=== PATIENT | female | born 1995 | race African-American/Black ===

== ENCOUNTER 2017-01-06 17:51 | Emergency (ER) | payer OTHER ==
[2017-01-06 17:55] VITALS: BP 119/75; PULSE 75; TEMP 98; BMI 19.7
--- NOTE | 2017-01-06 17:57 | PDOC ---
Rapid Medical Evaluation Chief Complaint: Psychiatric Time Seen by Provider: 01/06/17 17:53 Medical Evaluation: 01/06/17 17:54 RME Note: I have performed a brief, in-person evaluation of this patient . This patient presents with CC: Left sided CP; very anxious, meds at home not working Pertinent PE findings are: VSS; lungs clear I have ordered: EKG The patient will proceed to ED for further evaluation. JR
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
[2017-01-06] MEDS ORDERED: IBUPROFEN 400 MG TABLET (FP) PO ONE ×2 (19:42→19:49)
--- NOTE | 2017-01-07 09:41 | EKG ---
Test Reason : Blood Pressure : / mmHG Vent. Rate : 061 BPM Atrial Rate : 061 BPM P-R Int : 180 ms QRS Dur : 084 ms QT Int : 384 ms P-R-T Axes : 067 076 060 degrees QTc Int : 386 ms NORMAL SINUS RHYTHM ANTERIOR INFARCT , AGE UNDETERMINED NONSPECIFIC T WAVE ABNORMALITY NO PREVIOUS ECGS AVAILABLE Confirmed by DAVEY FRITZ MD ([id number]) on 01/07/2017 9:40:47 AM Referred By: Confirmed By:DAVEY FRITZ MD
== END 2017-01-06 20:37 | disposition home or self-care (01) ==
LOC: JERFT 17:51
DX: M94.0 Chondrocostal junction syndrome [Tietze] (principal); F41.8 Other specified anxiety disorders; F32.9 Major depressive disorder, single episode, unspecified; F43.10 Post-traumatic stress disorder, unspecified
CPT/HCPCS: 71020-TC; 84703; 93005; 93010; 99281-25

== ENCOUNTER 2021-05-23 23:55 | Emergency (ER) | payer OTHER ==
[2021-05-24 00:04] VITALS: BMI 22.6
[2021-05-24] MEDS ORDERED: ACETAMINOPHEN 325 MG TABLET (FP) PO ONE (00:50)
[2021-05-24] MEDS ORDERED: LIDOCAINE 5% TOPICAL PATCH TP ONE (00:50)
[2021-05-24] MEDS ORDERED: ACETAMINOPHEN 325 MG TABLET (FP) ONE (00:59)
[2021-05-24] MEDS ORDERED: LIDOCAINE 5% TOPICAL PATCH ONE (01:00)
[2021-05-24 02:23] VITALS: BP 127/52; PULSE 66; TEMP 98.9
[2021-05-24 02:23] LABS: EPI CELLS 28 /uL (0-25.1); HYALINE CASTS 2 /uL (0-3.1); PH,URINE 6.5 (5.0-8.0); URINE APPEARANCE CLEAR; URINE BACTERIA 171 /uL (0-1359); URINE BILIRUBIN NEGATIVE (NEGATIVE); URINE COLOR YELLOW; URINE GLUCOSE (UA) NEGATIVE (NEGATIVE); URINE KETONE NEGATIVE (NEGATIVE); URINE LEUK ESTERASE 1+ (NEGATIVE); URINE NITRITE NEGATIVE (NEGATIVE); URINE PROTEIN NEGATIVE (NEGATIVE); URINE RBC 23 /uL (0-23.9); URINE WBC 49 /uL (0-25.8)
[2021-05-24] MEDS ORDERED: LIDOCAINE PATCH REMOVAL MC ONE (12:00)
== END 2021-05-24 02:23 | disposition home or self-care (01) ==
LOC: JER 23:55
DX: M54.5 Low back pain (principal)
CPT/HCPCS: 81003; 99283-25

== ENCOUNTER 2024-01-01 17:35 | Emergency (ER) | payer BC, OTHER ==
[2024-01-01 17:45] VITALS: BP 123/82; TEMP 98.8; BMI 26.3
[2024-01-01 18:39] LABS: HEMATOCRIT 39.1 % (32.4-45.2); HEMOGLOBIN 13.1 GM/dL (10.7-15.3); MCH 32.1 pg (25.7-33.7); MCHC 33.5 g/dl (32.0-36.0); MEAN CELL VOLUME 95.9 fl (80-96); MEAN PLT VOLUME 8.1 fl (7.5-11.1); PLATELET COUNT 268 10^3/uL (134-434); RBC 4.08 M/mm3 (3.60-5.2); WHITE BLOOD COUNT 8.6 K/mm3 (4.0-10.0)
[2024-01-01] MEDS: SODIUM CHLORIDE 0.9% 500 ML INFUS.BAG IV ONE (18:54)
[2024-01-01 18:55] LABS: POTASSIUM 4.2 mmol/L (3.5-5.1)
[2024-01-01 18:57] LABS: ALBUMIN 3.7 g/dl (3.4-5.0); MAGNESIUM 1.9 mg/dL (1.8-2.4)
[2024-01-01 19:00] LABS: CREATININE 0.5 mg/dL (0.55-1.3); PHOSPHOROUS 3.5 mg/dL (2.5-4.9)
[2024-01-01 19:02] LABS: BILIRUBIN,TOTAL 0.5 mg/dL (0.2-1); TOT PROT 7.9 g/dl (6.4-8.2)
[2024-01-01] MEDS ORDERED: METOCLOPRAMIDE HCL INJECTION 10 MG/2 ML VIAL ONE (20:03)
[2024-01-01] MEDS: METOCLOPRAMIDE HCL INJECTION 10 MG/2 ML VIAL IVPUSH ONE (20:15)
[2024-01-01 21:01] VITALS: PULSE 89; RESP 19
== END 2024-01-01 21:42 | disposition home or self-care (01) ==
LOC: JER 17:35
PROC: 3E033GC Introduction of Other Therapeutic Substance into Peripheral Vein, Percutaneous Approach (ICD-10-PCS; principal; 2024-01-01)
DX: O21.9 Vomiting of pregnancy, unspecified (principal); Z3A.16 16 weeks gestation of pregnancy; Z20.822 Contact with and (suspected) exposure to COVID-19
CPT/HCPCS: 0241U-QW; 36415; 80053; 83735; 84100; 85027; 93005; 93010; 99284-25

== ENCOUNTER 2024-06-04 19:55 | Inpatient (IN) | payer BC ==
[2024-06-04 20:46] LABS: BASO % 0.4 % (0-2.0); EOS % 0.6 % (0-4.5); HEMATOCRIT 31.8 % (32.4-45.2); HEMOGLOBIN 10.8 GM/dL (10.7-15.3); LYMPH % 25.4 % (8-40); MCH 31.1 pg (25.7-33.7); MCHC 33.9 g/dl (32.0-36.0); MEAN CELL VOLUME 91.7 fl (80-96); MEAN PLT VOLUME 8.6 fl (7.5-11.1); MONO % 9.1 % (3.8-10.2); NEUT % 64.5 % (42.8-82.8); PLATELET COUNT 196 10^3/uL (134-434); RBC 3.47 M/mm3 (3.60-5.2); RDW 15.4 % (11.6-15.6); WHITE BLOOD COUNT 5.2 K/mm3 (4.0-10.0)
[2024-06-04 20:55] LABS: INR 0.89 (0.83-1.09); PROTHROMBIN TIME (PATIENT) 10.1 SEC (9.7-13.0)
[2024-06-04 20:58] LABS: ACTIVATED PTT 29.2 SECONDS (25.2-36.5)
[2024-06-04 21:06] LABS: POTASSIUM 3.4 mmol/L (3.5-5.1)
[2024-06-04 21:07] LABS: BLOOD UREA NITROGEN 4.7 mg/dL (7-18); CALCIUM 9.4 mg/dL (8.5-10.1)
[2024-06-04 21:11] LABS: CREATININE 0.5 mg/dL (0.55-1.3)
[2024-06-04] MEDS: DINOPROSTONE 10 MG VAGINAL SUPPOSITORY VG ONE (21:50)
[2024-06-04 22:02] LABS: HIV INTERPRETATION NEGATIVE (NEGATIVE)
[2024-06-04 22:22] VITALS: BMI 29.8
[2024-06-04] MEDS: ELECTROLYTE-148 SOLN 1,000 ML IV SCH (23:00)
[2024-06-04] MEDS: POTASSIUM CHLORIDE ORAL LIQUID 20 MEQ/15 ML PO ONE (23:45)
[2024-06-05] MEDS ORDERED: BUTORPHANOL TARTRATE 2 MG/ML VIAL ONE (09:42)
[2024-06-05] MEDS ORDERED: PROMETHAZINE HCL 25 MG/1 ML VIAL ONE ×2 (09:43→18:22)
[2024-06-05] MEDS ORDERED: OXYTOCIN 30 UNITS in 0.9% NS 30 UNIT/500 ML INFUS.BAG IVPB ONE (10:13)
[2024-06-05] MEDS: BUTORPHANOL TARTRATE 1 MG/ML VIAL IVPUSH ONE ×2 (10:20→18:23)
[2024-06-05] MEDS: OXYTOCIN 30 UNITS in 0.9% NS 30 UNIT/500 ML INFUS.BAG IVPB SCH (10:20)
[2024-06-05] MEDS: PROMETHAZINE HCL 25 MG/1 ML VIAL IVPB ONE ×2 (10:20→18:23)
[2024-06-05] MEDS ORDERED: BUTORPHANOL TARTRATE 1 MG/ML VIAL ONE (18:21)
[2024-06-05] MEDS ORDERED: FENTANYL/BUPIVACAINE/NS/PF - PCEA - 50 ML DISP.SYRIN EP ONE (20:14)
[2024-06-05] MEDS ORDERED: BUPIVACAINE HCL/PF 0.25% (2.5MG/ML) 10 ML VIAL ONE (20:30)
[2024-06-05] MEDS ORDERED: FENTANYL CITRATE/PF 50 MCG/ML VIAL ONE (20:30)
[2024-06-05] MEDS: FENTANYL/BUPIVACAINE/NS/PF - PCEA - 50 ML DISP.SYRIN EP SCH (20:48)
[2024-06-05] MEDS ORDERED: NALOXONE HCL 0.4 MG/ML VIAL IVPUSH PRN (21:17)
[2024-06-06] MEDS ORDERED: FENTANYL/BUPIVACAINE/NS/PF - PCEA - 50 ML DISP.SYRIN EP ONE ×2 (01:07→05:29)
[2024-06-06] MEDS ORDERED: OXYTOCIN 20 UNITS in 0.9% NS 20 UNIT/1,000 ML INFUS.BAG IV ONE (06:32)
[2024-06-06] MEDS ORDERED: LIDOCAINE HCL 1% PRESERVATIVE FREE - 30ML VIAL ONE (06:32)
[2024-06-06] MEDS: OXYTOCIN 20 UNITS in 0.9% NS 20 UNIT/1,000 ML INFUS.BAG IV SCH (07:09)
[2024-06-06] MEDS ORDERED: BISACODYL 10 MG SUPP.RECT RC PRN (07:42)
[2024-06-06] MEDS ORDERED: WITCH HAZEL 50% (TUCKS) 40 PAD/JAR PAD TP PRN (07:42)
[2024-06-06] MEDS ORDERED: METHYLERGONOVINE MALEATE 0.2 MG/1 ML AMP IM PRN (07:42)
[2024-06-06] MEDS ORDERED: ACETAMINOPHEN 325 MG TABLET (FP) PO PRN (07:42)
[2024-06-06] MEDS: BENZOCAINE 20% 57 GM BOTTLE TP PRN (12:48)
[2024-06-06] MEDS: BENZOCAINE 28 GM HEMORRHOIDAL OINTMENT TP PRN (12:49)
[2024-06-06] MEDS: IBUPROFEN 600 MG TABLET (FP) PO PRN (15:27)
[2024-06-06 17:21] VITALS: RESP 18
[2024-06-07 06:39] LABS: BASO % 0.3 % (0-2.0); EOS % 1.4 % (0-4.5); HEMATOCRIT 28.6 % (32.4-45.2); HEMOGLOBIN 9.7 GM/dL (10.7-15.3); LYMPH % 21.2 % (8-40); MCH 31.7 pg (25.7-33.7); MCHC 33.8 g/dl (32.0-36.0); MEAN CELL VOLUME 93.9 fl (80-96); MEAN PLT VOLUME 9.2 fl (7.5-11.1); MONO % 8.6 % (3.8-10.2); NEUT % 68.5 % (42.8-82.8); PLATELET COUNT 170 10^3/uL (134-434); RBC 3.04 M/mm3 (3.60-5.2); RDW 15.8 % (11.6-15.6); WHITE BLOOD COUNT 8.2 K/mm3 (4.0-10.0)
[2024-06-07] MEDS: SENNOSIDES/DOCUSATE COMBO (SENNA PLUS) TABLET (UD) PO PRN (21:02)
[2024-06-07 22:33] VITALS: TEMP 98
[2024-06-08 11:05] VITALS: BP 130/80; PULSE 80
== END 2024-06-08 12:20 | disposition home or self-care (01) | DRG 807 ==
LOC: JLDR 19:55 → J3W 06-06 10:25
PROVIDERS: ADMIT Obstetrics & Gynecology; ATTEND Obstetrics & Gynecology
PROC: 3E0P7VZ Introduction of Hormone into Female Reproductive, Via Natural or Artificial Opening (ICD-10-PCS; 2024-06-04)
PROC: 10E0XZZ Delivery of Products of Conception, External Approach (ICD-10-PCS; principal; 2024-06-06)
PROC: 0HQ9XZZ Repair Perineum Skin, External Approach (ICD-10-PCS; 2024-06-06)
PROC: 0W8NXZZ Division of Female Perineum, External Approach (ICD-10-PCS; 2024-06-06)
DX: O36.5930 Maternal care for other known or suspected poor fetal growth, third trimester, not applicable or unspecified (principal); Z37.0 Single live birth; O70.0 First degree perineal laceration during delivery; O99.02 Anemia complicating childbirth; O26.893 Other specified pregnancy related conditions, third trimester; R74.01 Elevation of levels of liver transaminase levels; Z3A.39 39 weeks gestation of pregnancy
CPT/HCPCS: 36415; 59409; 80048; 85025; 85610; 85730; 86780; 86803; 86850; 86900; 86901; 87389; 88307-TC